=== PATIENT | female | born 1980 | race Caucasian/White ===

== ENCOUNTER 2018-07-20 20:51 | Emergency (ER) | payer BC | END 2018-07-20 23:30 | disposition home or self-care (01) | LOC: E/R 23:30 | DX: H53.8 Other visual disturbances (principal); R40.2142 Coma scale, eyes open, spontaneous, at arrival to emergency department; R40.2362 Coma scale, best motor response, obeys commands, at arrival to emergency department; R40.2252 Coma scale, best verbal response, oriented, at arrival to emergency department; R51 Headache | CPT/HCPCS: 99282 ==